=== PATIENT | female | born 1940 | race Caucasian/White ===

== ENCOUNTER 2024-05-11 01:17 | Outpatient (CLI) | payer MEDICARE, SELFPAY ==
--- NOTE | 2024-05-11 | DI.MAMMO_ITS ---
Exam(s) MG MAMMO SCREENING 60 MIN DUR EXAM: MG MAMMO SCREENING 60 MIN DUR CLINICAL HISTORY: SCREENING, Z12.39, HX BREAST CANCER TECHNIQUE: Bilateral full field digital CC and MLO mammographic images were obtained with 3D tomosyn thesis and utilizing computer aided detection (CAD). COMPARISON: Available for comparison. FINDINGS: Masses/Architectural Distortion: Patient has had bilateral breast biopsies. No new masses or areas o f architectural distortion are seen. Microcalcifications: No suspicious pleomorphic-type are seen. Stable bilateral calcifications are see n in the breast. Skin Thickening/Nipple Retraction: None. IMPRESSION: 1. No significant interval change with no specific features of malignancy noted. 2. Unless there is more urgent need, screening mammography is recommended, as per [employer] guidelines. BI-RADS Category 2 - Benign Findings Breast Density - Category B - Scattered areas of fibroglandular density Breast density category C or D implies that the patient has dense breast tissue. Dense breast tissue is very common and is not abnormal but dense breast tissue can make it harder to find cancer on a ma mmogram. Also, dense breast tissue may increase their breast cancer risk. This information about the result of the mammogram report was provided to the patient to raise their awareness. Use this report when you speak with the patient about their risks for breast cancer, which includes their family hist ory. At that time, you may recommend for more screening tests (Ultrasound or MRI) as they might be us eful based on their risk. A negative radiographic report should not delay biopsy if a dominant or clinically suspicious mass is present. Up to ten percent of cancers are not identified on mammography. A negative report may reinforce clinical impression. Adenosis and dense breasts may obscure an underlying neoplasm. False positive reports average 6 to 10%. Patient will receive a letter notifying them of these results.
== END 2024-05-11 01:37 ==
PROVIDERS: Visit Provider Student in an Organized Health Care Education/Training Program
DX: Z12.31 Encounter for screening mammogram for malignant neoplasm of breast (principal); Z85.3 Personal history of malignant neoplasm of breast
CPT/HCPCS: 77063; 77067

== ENCOUNTER 2024-08-17 12:27 | Outpatient (REF) | payer MEDICARE, SELFPAY ==
[2024-08-17 19:52] LABS: Anion Gap 10.9 mmol/L (3-11); BUN 21 mg/dL (7-18); CO2 26.1 mmol/L (21.0-32.0); CREATININE 0.9 mg/dL (0.55-1.02); Calcium 9.8 mg/dL (8.5-10.1); Chloride 101 mmol/L (98-107); Estimated GFR 63.04 (mL/min/1.73m2); Glucose 115 mg/dL (74-106); Potassium 4.2 mmol/L (3.5-5.1); Sodium 138 mmol/L (136-145); TSH (W/Ref FT4) 0.49 uIU/mL (0.36-3.74)
== END 2024-08-17 12:28 | disposition home or self-care (01) ==
LOC: NCHCN 12:27
PROVIDERS: PCP Student in an Organized Health Care Education/Training Program; Visit Provider Student in an Organized Health Care Education/Training Program
DX: E03.9 Hypothyroidism, unspecified (principal)
CPT/HCPCS: 80048; 84443

== ENCOUNTER → 2024-10-11 13:05 | Outpatient (BNVA) | payer MEDICARE, SELFPAY | PROVIDERS: PCP Student in an Organized Health Care Education/Training Program; Referring Provider Student in an Organized Health Care Education/Training Program; Visit Provider Physician Assistant Surgical | DX: J44.9 Chronic obstructive pulmonary disease, unspecified (principal) | CPT/HCPCS: 99205 ==

== ENCOUNTER 2024-11-16 00:47 | Outpatient (CLI) | payer MEDICARE, SELFPAY ==
--- NOTE | 2024-11-16 14:11 | DI.RAD_ITS ---
Exam(s) XR HIP LT COMPLETE AP PELVIS EXAM: XR HIP LT COMPLETE AP PELVIS CLINICAL HISTORY: lt hip pain,m25.552,m53.3,si joint dysfunction. TECHNIQUE: 2D digital imaging was performed. COMPARISON: No exams were available for comparison FINDINGS: Two views No evidence of pelvic nor hip fracture. Only mild degenerative changes in the hips. There is also s ome degenerative change in the left sacroiliac joint. No ankylosis. No osseous lesions. Bone densi ty is age-appropriate. IMPRESSION: As above. DATA REPOSITORY: RADIATION DOSE DELIVERED:
== END 2024-11-16 01:07 ==
PROVIDERS: PCP Student in an Organized Health Care Education/Training Program; Visit Provider Anesthesiology Pain Medicine
DX: M25.552 Pain in left hip (principal); M53.3 Sacrococcygeal disorders, not elsewhere classified
CPT/HCPCS: 73502

== ENCOUNTER 2024-12-22 14:41 | Outpatient (CLI) | payer MEDICARE, SELFPAY ==
--- NOTE | 2024-12-22 06:00 | DI.RAD_ITS ---
Exam(s) XR PAIN CLINIC SACRIOILIAC 2V EXAM: XR PAIN CLINIC SACRIOILIAC 2V CLINICAL HISTORY: Dx: Sacroiliac Joint Dysfunction. TECHNIQUE: Fluoroscopy was provided for the referring physician for guidance with performing pain cl inic injection procedure. COMPARISON: No exams were available for comparison FINDINGS: Please see procedure note for details. Fluoro time: 21.8 seconds RADIATION DOSE DELIVERED: Ka,r=9.8 mGy
[2024-12-22 15:11] VITALS: BP 139/88; PULSE 68; RESP 20; TEMP 36.6; O2SAT 96
[2024-12-22 15:50] VITALS: PULSE 90; O2SAT 96
[2024-12-22 15:55] VITALS: PULSE 87; O2SAT 97
[2024-12-22] MEDS: Omnipaque 240 MG/ML 50 ML BTL IJ (16:05)
[2024-12-22] MEDS: Bupivacaine 0.5% Pres-Free 10 ML VIAL IJ (16:05)
[2024-12-22] MEDS: methylPREDNISolone ACETATE 80 MG/ML VIAL IJ (16:05)
[2024-12-22] MEDS: Nerve Block Tray 1 EACH MC (16:06)
--- NOTE | 2024-12-22 16:12 | PDOC.PAIN ---
Date of service: 12/22/24 Time of Service: 16:13 Pain Managment Procedure Note Procedure Note Procedure Note: ?Sacroiliac Joint Steroid Injection ? Location: ? ? Left SI joint ? Pre-procedure Diagnosis: Sacroiliitis, not elsewhere classified - M46.1 ? Post-procedure Diagnosis:? The same as above ? Sedation:? NONE ? Medication: Depo-Medrol 40 mg, bupivacaine 0.5% 1 mL, Omnipaque 0.25 mL per joint ? Estimated blood loss:? less than 2 cc ? Surgeon:? Figueroa Corado MD ? COMMENT: THIS WILL BE BOTH DIAGNOSTIC AND THERAPEUTIC ? Procedure Detail:? The procedure and potential risks were explained to the patient and informed written consent was obtained. The patient was escorted to the procedure room and placed in the prone position. Pillows were utilized for proper positioning and comfort. Time out was performed in the procedure room with nursing staff confirming the patient's identity, procedure to be performed, allergies, and any blood thinning or anti-platelet medications. The patient's lumbosacral area was prepped with ChloraPrep and draped in a sterile fashion. Sterile technique was maintained throughout the procedure.? Sterile gloves were used, a face mask was worn, and new single dose vials of all medications were used with the top being swabbed with alcohol and given time to dry prior to withdrawal of medication. Lidocaine 1% was used to anesthetize the skin. With fluoroscopic guidance, a 22-gauge 3.5 spinal needle was advanced into the posteroinferior aspect of the Left SI joint . Confirmation of intra-articular position of the needle tip was obtained with injection of 0.25cc of Omnipaque 240 contrast which showed appropriate spread within the joint.? Following negative aspiration, 40mg of methylprednisolone mixed with 1 mL of bupivacaine 0.5% was injected.? The needle was gently removed. ?The patient tolerated the procedure well and was transported to the recovery area for observation and discharge instructions.? Permanent images saved and recorded. Plan:? Follow up prn. PAIN PRE PROCEDURE 6/10 POST PROCEDURE 0/10 COMMENT: 100 % BETTER AFTER INJECTION Coding Conscious Sedation used for procedure: No CPT Codes: SI Joint Inj; incl Fluoro - [id number] ([id number] ~G) Additional Codes: Date of Service (71320) Date of service: 12/22/24
== END 2024-12-22 14:42 | disposition home or self-care (01) ==
LOC: PC 14:41
PROVIDERS: PCP Student in an Organized Health Care Education/Training Program; Visit Provider Anesthesiology Pain Medicine
DX: M46.1 Sacroiliitis, not elsewhere classified (principal); M25.552 Pain in left hip
CPT/HCPCS: 27096; 72200; J0665; J1010; Q9967

== ENCOUNTER 2025-01-27 11:20 | Outpatient (REF) | payer MEDICARE, SELFPAY ==
[2025-01-27 18:48] LABS: TSH 0.97 uIU/mL (0.36-3.74)
== END 2025-01-27 11:21 | disposition home or self-care (01) ==
LOC: NCHCN 11:20
PROVIDERS: PCP Student in an Organized Health Care Education/Training Program; Visit Provider Student in an Organized Health Care Education/Training Program
DX: E03.9 Hypothyroidism, unspecified (principal)
CPT/HCPCS: 84439; 84443

== ENCOUNTER 2025-02-23 02:12 | Outpatient (CLI) | payer MEDICARE, SELFPAY ==
--- NOTE | 2025-02-23 | DI.DEXA_ITS ---
Exam(s) XR DEXA BONE DENSITY W/WO LUCI EXAM: XR DEXA BONE DENSITY W/WO LUCI CLINICAL HISTORY: Post Elin Z78.0 hx of Osteoporosis TECHNIQUE: [employer] C densitometer analysis of left hip, lumbar spine and right forearm. Lateral survey image of the thoracic and lumbar spine. COMPARISON: BONE DENSITY/ from 09/23/2019 outside exam FINDINGS: Lateral view of the thoracic and lumbar spine post question of a mild compression fracture of T9. Bone mineral density measurements of the lumbar spine correspond to a total T- score of -1.1, in the osteopenic range. This is not significantly changed from the prior exam. Bone mineral density measurements of the left hip correspond to a total T-score of -1.5. The femoral neck T-score is -2.4, in the osteopenic range. The opposite hip was analyzed on the prior exam and showed a T-score of the femoral neck region of 1.7 a total T-score of -1.0. Theright forearm bone mineral density measurements correspond to a T-score of the distal 3rd of -1.6, in the osteopenic range. The forearm was not analyzed on the prior exam. IMPRESSION: Osteopenia of the spine, hip and forearm.
== END 2025-02-23 02:32 ==
LOC: DI 02:35
PROVIDERS: PCP Student in an Organized Health Care Education/Training Program; Visit Provider Student in an Organized Health Care Education/Training Program
DX: M81.0 Age-related osteoporosis without current pathological fracture (principal); Z78.0 Asymptomatic menopausal state
CPT/HCPCS: 77080

== ENCOUNTER → 2025-04-11 12:28 | Outpatient (BNVA) | payer MEDICARE, SELFPAY | PROVIDERS: PCP Student in an Organized Health Care Education/Training Program; Referring Provider Student in an Organized Health Care Education/Training Program; Visit Provider Physician Assistant Surgical | DX: J44.9 Chronic obstructive pulmonary disease, unspecified (principal); Z87.891 Personal history of nicotine dependence | CPT/HCPCS: 99214 ==

== ENCOUNTER 2025-05-19 04:26 | Outpatient (CLI) | payer MEDICARE, SELFPAY ==
--- NOTE | 2025-05-19 | DI.MAMMO_ITS ---
Exam(s) MG MAMMO SCREENING 60 MIN DUR EXAM: MG MAMMO SCREENING 60 MIN DUR CLINICAL HISTORY: SCREENING MAMMO Z12.31 PERS HX BREAST CANCER Z85.3. TECHNIQUE: Bilateral full field digital CC and MLO mammographic images were obtained with 3D tomosynthesis and utilizing computer aided detection (CAD). COMPARISON: Prior mammograms were reviewed. FINDINGS: The left breast lumpectomy site remains stable. No new masses in left breast. Multiple benign microcalcifications and macro calcifications in the left breast are again noted. In the right breast there is some scarring and architectural distortion from prior excisional biopsy again noted. No obvious new right breast findings. Microcalcifications in the right breast appear benign. IMPRESSION: Stable benign-appearing bilateral findings. No radiographic evidence of malignancy. BI-RADS Category 2 - Benign Findings Breast Density - Category B - There are scattered areas of fibroglandular density. Breast density Category C or D implies that the patient has dense breast tissue. Dense breast tissue can make it harder to find cancer on a mammogram. Dense breast tissue is also associated with an increased risk of breast cancer. This information about the result of the mammogram report was provided to the patient to raise their awareness. Use this report when you speak with the patient about their risks for breast cancer, which includes their family history. At that time, you may recommend additional screening tests (Ultrasound or MRI) as these tests may add significant information. A negative radiographic report should not delay biopsy if a dominant or clinically suspicious mass is present. Up to ten percent of cancers are not identified on mammography. A negative report may reinforce clinical impression. Adenosis and dense breasts may obscure an underlying neoplasm. False positive reports average 6 to 10%. Patient will receive a letter notifying them of these results.
== END 2025-05-19 04:46 ==
LOC: DI 04:26
PROVIDERS: PCP Student in an Organized Health Care Education/Training Program; Visit Provider Student in an Organized Health Care Education/Training Program
DX: Z12.31 Encounter for screening mammogram for malignant neoplasm of breast (principal); Z85.3 Personal history of malignant neoplasm of breast
CPT/HCPCS: 77063; 77067

== ENCOUNTER 2025-08-04 14:11 | Outpatient (REF) | payer MEDICARE, SELFPAY ==
[2025-08-04 19:35] LABS: Abs Immature Grans 0.02 10^3/uL (0.0-0.06); HCT 42.4 % (36.0-46.0); HGB 13.9 g/dL (11.2-15.7); Immature Grans % 0.3 %; MCH 28.9 pg (27.0-33.0); MCHC 32.8 % (32.0-36.0); MCV 88 fL (80-95); MPV 10.4 fL (8.0-11.0); Platelet Count 239 10^3/uL (130-400); RBC 4.81 10^6/uL (3.93-5.22); RDW 13.3 % (11.7-14.6); RDW-SD 43.3 fL; WBC 7.63 10^3/uL (4.4-10.8)
[2025-08-04 19:46] LABS: Magnesium 1.7 mg/dL (1.6-2.6)
[2025-08-04 19:47] LABS: Anion Gap 10.3 mmol/L (3-11); BUN 18 mg/dL (9-23); CO2 27.7 mmol/L (20.0-31.0); Calcium 9.4 mg/dL (8.3-10.6); Chloride 103 mmol/L (98-107); Glucose 150 mg/dL (74-106); Potassium 3.8 mmol/L (3.5-5.1); Sodium 141 mmol/L (136-145)
[2025-08-04 19:51] LABS: TSH (W/Ref FT4) 1.43 uIU/mL (0.55-4.78)
== END 2025-08-04 14:12 | disposition home or self-care (01) ==
LOC: NCHCN 14:11
PROVIDERS: PCP Student in an Organized Health Care Education/Training Program; Visit Provider Student in an Organized Health Care Education/Training Program
DX: I10 Essential (primary) hypertension (principal); E03.9 Hypothyroidism, unspecified
CPT/HCPCS: 80048; 83735; 84443; 85025